=== PATIENT | male | born 1985 | race Hispanic/Latino ===

== ENCOUNTER 2025-06-09 21:16 | Emergency (ER) | payer SELFPAY ==
--- NOTE | ~2025-06-09 | CT_ITS ---
EXAMINATION: CT abdomen pelvis w con DATE: 06/10/2025 00:38 INDICATION: Purulent drainage from the belly button TECHNIQUE: Computed tomography (CT) of the abdomen and pelvis was performed with 100 cc Omnipaque 350 intravenous contrast. The dose-length product was 767.69 mGy-cm. Automated exposure control and iter ative reconstruction technique were employed. COMPARISON: None. FINDINGS: Lung bases unremarkable heart size normal. No significant pleural or pericardial effusion. Fatty infiltration of the liver. The spleen, pancreas, adrenal glands and kidneys are unremarkable. T here is a subcentimeter hypodensity of the right kidney, most likely benign cysts. There is mild skin thickening surrounding the umbilicus, suspicious for cellulitis. No abscess. No foreign body identif ied. No significant vascular abnormality. Gallbladder is present. No abnormal pelvic masses or fluid collections. Bladder is decompressed limiting evaluation for wall thickening. IMPRESSION: 1. Skin thickening with mild phlegmonous change involving the umbilicus, suspicious for cellulitis. N o drainable abscess identified. Reviewed, dictated and finalized at location A. IMPRESSION: 1. Skin thickening with mild phlegmonous change involving the umbilicus, suspic ious for cellulitis. No drainable abscess identified.
[2025-06-09 21:23] VITALS: BP 132/96; PULSE 102; RESP 18; TEMP 36.6; O2SAT 98
--- OUTSIDE RECORDS SUMMARY | 2025-06-09 23:51 | XMS_ITS | Data Portability ---
Author Organization [place] [facility] [place] [facility] Address [address] [place] [address] Care Team Providers Care Iuss Analyst Name Role Phone OMKAR STODDARD Primary Care Provider [phone] Assessment No assessment recorded. Plan of Treatment Reminders Order Date Submit Date Provider Last Modified By Organization Details Last Modified Time Details Appointments None recorded. Lab None recorded. Referral general surgeon referral 2022 023 inklems 1 [facility], [address], [place], [address], 3 11:34:07 Procedures None recorded. Surgeries open incarcerate d umbilical hernia repair w/mesh (SURG) 2022 024 API-[id number] [facility] (Surgery Sched), [address] [place], [address], 4 10:10:20 Imaging None recorded. Medication Orders None recorded. Patient TargetsNo targets recorded. Patient Instructions Encounter Date Encounter Id Patient Instructions Last Modified By Organization Details Last Modified Time 10/11/2023 [id number] A healthy lifestyle: care instructions [email or web address] Not available 10/11/2023 14:26:23 Quitting Tobacco : Care Instructions [email or web address] Not available 10/11/2023 14:26:23 Reason for Referral General Surgeon Referral for Umbilical hernia Referring Physician: Omkar Stoddard, Family Medicine, Encounter Date: 10/11/2023 Problems Name Problem SNOMED Code Status Onset Date Resolution Date Notes Provider Name and Address Organization Details Recorded Time Obesity 262458871 Active 023 Omkar Stoddard MD Attn: Accounting ,[address] [facility], [place], [address] , [facility] 10/11/2023 14:26:19 Smoker 91498512 Active 023 Omkar Stoddard MD Attn: Accounting ,[address] [facility], [place], [address] , [facility] 10/11/2023 14:26:14 Problem Notes None recorded. Medical Equipment None Reported. Allergies No known drug allergies Medications Name Sig Start Date Stop Date Status Note LastModified by Organization Details LastModified Time polyethylene glycol 3350 17 gram/dose oral powder MIX 17 GRAMS (1 CAPFULL) IN 8 OUNCES OF LIQUID AND DRINK DAILY active Not Available Not Available No t Available oxycodone 5 mg tablet Take 1 tablet every 4 hours by oral route as needed for 5 days. 024 active Not Available Not Available Not Avai lable Vitals Date Recorded Body height Oxygen saturation Oxygen saturation in Arterial blood by Pulse oximetry Body temperature Heart rate Body mass index (BMI) Body weight Systolic And Diastolic Provider Name and Address Organization Details Last Updated DateTime 4 170.18 cm 98 % 98 % 98.2 [degF] 72 /min 31.2 kg/m2 58128.6 g 121/84 mm[Hg] Musa Aguayo MA [facility] 4 10:54:39 Date Recorded Body weight Body temperature Body mass index (BMI) Body height Respiratory rate Heart rate Oxygen saturation Oxygen saturation in Arterial blood by Pulse oximetry Systolic And Diastolic Provider Name and Address Organization Details Last Updated DateTime 3 52213.9 8 g 97.9 [degF] 30.8 kg/m2 170.18 cm 16 /min 77 /min 96 % 96 % 128/82 mm[Hg] Lionel Odell MA [facility] 3 14:03:41 Date Recorded Body height Oxygen saturation Oxygen saturation in Arterial blood by Pulse oximetry Body mass index (BMI) Body weight Heart rate Body temperature Systolic And Diastolic Provider Name and Address Organization Details Last Updated DateTime 3 170.18 cm 98 % 98 % 31.3 kg/m2 32873.4 g 108 /min 98 [degF] 155/93 mm[Hg] Musa Aguayo [place] [facility] [place] 14:29:49 Social History Question Answer Notes LastModified by Organizat ion Details LastModified Time Tobacco Smoking Status Current Every Day Smoker Lionel Odell MA null, [place] [facility] 10/11/2023 13:59:58 Do You Have An Advance Directive? Yes Information not available 10/11/2023 How Many Years Have You Consumed Alcohol? 23 Information not available 10/11/2023 Are You Blind Or Do You Have Difficulty Seeing? Yes Information not available 10/11/2023 What Is Your Level Of Caffeine Consumption? Occasional Information not available 10/11/2023 In The 14 Days Before Symptom Onset, Have You Had Close Contact With A Laboratory-confir med COVID-19 While That Case Was Ill? No Information not available 10/11/2023 In The 14 Days Before Symptom Onset, Have You Had Close Contact With A Person Who Is Under Investigation For COVID-19 While That Person Was Ill? No Information not available 10/11/2023 Have You Been To An Area Known To Be High Risk For COVID-19? No Information not available 10/11/2023 Are You Deaf Or Do You Have Serious Difficulty Hearing? No Information not available 10/11/2023 What Type Of Diet Are You Following? REGULAR Information not available 10/11/2023 Are There Any Guns Present In Your Home? No Information not available 10/11/2023 Do You Have A High School Diploma Or Higher Education? No Information not available 10/11/2023 Do You Sometimes Have To Miss Your Medical Appointments Due To Difficult Getting Transportation? No Information not available 10/11/2023 Do You Feel Unfairly Treated Due To Things Such As Race, Age, Gender, Disability Or Some Other Reason? No Information not available 10/11/2023 Do You Feel Physically And Emotionally Safe While Living At Home? Yes Information not available 10/11/2023 Do You Feel Physically And Emotionally Safe In Your Neighborhood Or Other Public Places? Yes Information not available 10/11/2023 Do You Have A Medical Power Of Hospital Secretary? Yes [email or web address] Information not available 10/31/2023 What Was The Date Of Your Most Recent Tobacco Screening? 10/11/2023 Information not available 10/11/2023 How Many Children Do You Have? 4 Information not available 10/11/2023 Do You Use Protection During Sex? No Information not available 10/11/2023 What Is Your Relationship Status? Information not available 10/11/2023 Do You Use Your Seat Belt Or Car Seat Routinely? Yes Information not available 10/11/2023 Are You Sexually Active? Yes Information not available 10/11/2023 Do You Have Smoke And Carbon Monoxide Detectors In Your Home? Yes Information not available 10/11/2023 At What Age Did You Start Smoking Tobacco? 16 Information not available 10/11/2023 Are You Passively Exposed To Smoke? Yes Information no t available 10/11/2023 How Much Tobacco Do You Smoke? 0.5 PPD Information not available 10/11/2023 Do You Use Sunscreen Routinely? No Information not available 10/11/2023 Has Tobacco Cessation Counseling Been Provided? Yes Information not available 10/11/2023 On What Date Was Tobacco Cessation Counseling Provided? 10/11/2023 Information not available 10/11/2023 How Many Years Have You Smoked Tobacco? 21 Information not available 10/11/2023 Sex: Male Functional Status Question Answer Note LastModified by Organizat ion Details LastModified Time Do you use any illicit or recreational drugs? No Information not available 10/11/2023 Do you or have you ever used any other forms of tobacco or nicotine? No Information not available 10/11/2023 What is your level of alcohol consumption? Occasional Information not available 10/11/2023 Are you currently employed? Yes Information not available 10/11/2023 Are you able to care for yourself? 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 Moderate Information not available 10/11/2023 Mental Status Question Answer Note LastModified by Organization D etails LastModified Time Do you feel stressed (tense, restless, nervous, or anxious, or unable to sleep at night)? [id number] Information not available 10/11/2023 Family History Relationship Description Onset Age of this Age Resolved Age Notes LastModified by Organization Details LastModified Time Father No current problems or disability [email or web address] Not available 13:58:36 Mother No current problems or disability [email or web address] Not available 13:58:36 Medical History Condition Response Coronary Artery Disease N Other N Atrial Fibrillation N High Blood Pressure N Thyroid Problems N Kidney or Bladder Problems N Depression N COPD N Blood Clots N GI Problems N Skin Problems N Eating Disorder N Anemia N Heart Attack (MD) N Diabetes N Anxiety Disorder N Muscle, Joint, or Bone Problems N Seizures/Epilepsy N Arthritis N Acid Reflux (GERD) N Cancer N Stroke N Allergies N Asthma N ADHD N Substance Abuse N High Cholesterol N Hepatitis N Liver Disease N Schizophrenia N Headaches N Osteoporosis N Heart Failure N Past Encounters Encounter ID Performer Location Encounter Start Date Encounter Closed Date Diagnosis/Indication Diagnosis SNOMED-CT Code Diagnosis ICD10 Code Diagnosis Note [id number] Omkar Stoddard MD [address] [address] 10/11/2023 13:50:42 10/13/2023 15:46:23 Obesity 532857880 E66.9 Umbilical hernia 7338078 07 K42.9 Smoker 18200395 F17.108 [id number] Valentin Recinos MD [facility] [address] [place] [address] 10/31/2023 14:16:37 10/31/2023 15:07:31 Irreducible umbilical hernia 245640018 K42.0 patient with symptomati c umbilical hernia, amenable to open repair. Risks include bleeding, recurrence , pain, and mesh infection. Patient is in agreement with the plan of care. Will proceed to the OR as soon as is convenient . [id number] Valentin Recinos MD [facility] [address] [place] [address] 12/26/2023 10:40:27 12/26/2023 14:47:29 Irreducible umbilical hernia 680568135 K42.0 patient with symptomati c umbilical hernia, amenable to open repair. Risks include bleeding, recurrence , pain, and mesh infection. Patient is in agreement with the plan of care. Will proceed to the OR as soon as is convenient . Postoperative visit 9347 14334 Z48.89 1) diet as tolerated2 ) cleanse and moisturize incisions daily3) no lifting over 30 lbs until 6 weeks post-op4) return to office should a problem arise Health Concerns Section Related Observation LastModified by Organization Detai ls LastModified Time None Recorded Concern Status LastModified by Organization Details LastModified Time None Recorded Advance Directives Directive Y: Payers Insurance Date Sequence Insurance Name Policy Number Policy Matthew Covered Member ID Matthew Member ID Guarantor Name 10/11/2023 1 [facility] (MEDICARE REPLACEMENT/ ADVANTAGE - HMO) Reynaldo Varma [id number] Reynaldo Varma Notes Date Note Type Note Provider Name and Address Organization Details Recorded Time 10/11/2023 text/html Patient is here to establish care, complains of umbilical hernia for one year. Omkar Stoddard MD Attn: Accounting,[address] [facility], [place], [address], [facility] 10/11/2023 14:26:46 10/31/2023 text/html HerniaReported bypatient.Location:u mbilicus Quality:tender;bulgi ng Severity:moderate; do not vary with time of day Duration:1 years Onset/Timing:unknown Context:no history of chronic liver disease; no family history of substance abuse Alleviating factors:rest Aggravating factors:nothing makes it worse Associated Symptoms:no nausea; no vomiting Valentin Recinos MD [address] [place], [address], [place] 10/31/2023 14:39:18 12/26/2023 text/html s/p open umbilic la hernia repair, no pain, no swelling, no complaints. Valentin Recinos MD [address] [place], [address], [facility] 12/26/2023 11:14:06
--- OUTSIDE RECORDS SUMMARY | 2025-06-09 23:51 | XMS_ITS | Clinical Summary ---
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 Gender Identity Not on file Sexual Orientation Not on file Plan of Treatment Health Maintenance Due Date Last Done Comments Hepatitis C Virus (HCV) Screening 1983 TdaP Immunization 1983 Hepatitis B Immunization (1 of 3 - 19+ 3-dose series) 2002 Influenza Immunization (#1) 2024 SARS-COV-2 Immunization (3 - 2023-25 season) 2024 04/09/2021, 03/19/2021 Respiratory Syncytial Virus (RSV) Immunization (Adult) (1 - 1-dose 75+ series) 2058 Meningococcal Immunization (ACWY) Aged Out No longer eligible b ased on patient's age to complete this topic Pneumococcal Immunization Combined Aged Out No longer eligible b ased on patient's age to complete this topic Rotavirus Immunization Aged Out No lo nger eligible based on patient's age to complete this topic
[2025-06-09 23:52] LABS: Hematocrit 45.4 % (42.0-52.0); Hemoglobin 16.0 g/dL (14.0-18.0); Immature Granulocyte Percent A 0.5 % (0-0.5); Lymphocytes Absolute Auto 3.40 K/mm3 (0.9-3.2); Mean Corpuscular HGB Conc 35.2 g/dl (32-36); Mean Corpuscular Hemoglobin 30.5 pg (26-34); Mean Corpuscular Volume 86.6 fl (80-100); Nucleated Red Blood Cells Absolute Auto 0.000 K/mm3 (0.0-0.012); Nucleated Red Blood Cells Perc 0.0 % (0.0-0.2); Platelet Count Result 242 k/mm3 (150-375); Red Blood Count 5.24 M/mm3 (4.6-6.20); White Blood Count 10.7 K/mm3 (4.5-10.0)
[2025-06-10 00:03] VITALS: BP 134/74; PULSE 98; RESP 15; O2SAT 99
[2025-06-10 00:16] LABS: Alanine Aminotransferase 46 U/L (6-50); Albumin Level 4.4 g/dL (3.5-5.1); Alkaline Phosphatase 69 U/L (38-126); Anion Gap 7 mmol/L (4-12); Aspartate Amino Transferase 35 U/L (17-59); Bilirubin,Total 0.5 mg/dL (0.2-1.3); Blood Urea Nitrogen 18 mg/dL (9-20); Calcium 9.6 mg/dL (8.4-10.2); Carbon Dioxide 24 mmol/L (22-30); Chloride 106 mmol/L (98-107); Estimated CRCL calculation 91 ml/min; Estimated Glomerular Filt Rate > 60; Glucose 101 mg/dL (65-110); Potassium 3.8 mmol/L (3.4-5.0); Sodium 137 mmol/L (137-145); Total Protein 7.7 g/dL (6.3-8.2)
--- NOTE | 2025-06-10 00:23 | ED.ABDPAIN ---
HPI - Abdominal Pain General Chief Complaint: Abdominal Pain Stated Complaint: my belly button is bleeding Time Seen by Provider: 06/09/25 23:29 Source: patient Mode of arrival: ambulatory Limitations: no limitations History of Present Illness HPI narrative: This is a 39 year old male that presents to the ER for abdominal pain. Ongoing over the last 2 days. Reports purulent drainage from the belly button. He had umbilical hernia repair about a year and a half ago. Denies fevers, vomiting. Related Data Allergies Allergy/AdvReac Type Severity Reaction Status Date / Time No Known Allergies Allergy Verified 06/10/25 02:52 Review of Systems Review of Systems: All systems reviewed & are unremarkable except as noted in HPI and below PMFSH Surgical History Surgical History (Updated 06/10/25 @ 00:25 by Dorcas Roberts PA-C) H/O umbilical hernia repair Exam Narrative: GENERAL: Well-appearing, well-nourished, and in no acute distress. HEAD: Normocephalic, atraumatic. EYES: EOMI. CHEST: Clear to auscultation. No respiratory distress. No wheezes rales or rhonchi HEART: Regular rate and rhythm. No murmur heard. Normal peripheral pulses. ABDOMEN: Soft, nontender, nondistended, normal active bowel sounds. Purulent drainage from the umbilicus EXTREMITIES: Normal range of motion. No edema. SKIN: Warm, dry, no rash. NEURO: No focal deficits. Alert and oriented x3. PSYCH: Normal mood and affect Course Course Emergency Course: Patient updated on his workup and agrees with plan of care Vital Signs Vital signs: Vital Signs Temperature 97.9 F 06/09/25 21:23 Pulse Rate 102 H 06/09/25 21:23 Respiratory Rate 18 06/09/25 21:23 Blood Pressure 132/96 H 06/09/25 21:23 Pulse Oximetry 98 06/09/25 21:23 Oxygen Delivery Room Air 06/09/25 21:23 Temperature 97.9 F 06/09/25 21:23 Pulse Rate 102 H 06/09/25 21:23 Respiratory Rate 18 06/09/25 21:23 Blood Pressure 132/96 H 06/09/25 21:23 Pulse Oximetry 98 06/09/25 21:23 Oxygen Delivery Room Air 06/09/25 21:23 MDM - Abdominal Pain MDM Narrative Medical decision making narrative: Patient presents to the ER for drainage from umbilicus. He is afebrile and nontoxic appearing. CBC is mild leukocytosis to 10.7. Metabolic panel without concerning findings. CT abdomen pelvis shows findings of cellulitis. Patient given 1st dose of antibiotics IV. Will be continued on oral antibiotics. He was instructed to follow up with his general surgeon. He was given warnings to return to the ER Differential Diagnosis Differential diagnosis: Likely other (Cellulitis, abscess) Lab Data Attestation: I reviewed the patient's lab results. 06/09/25 23:46 06/09/25 23:46 Labs: Lab Results 06/09/25 Range/Units 23:46 WBC 10.7 H (4.5-10.0) K/mm3 RBC 5.24 (4.6-6.20) M/mm3 Hgb 16.0 (14.0-18.0) g/dL Hct 45.4 (42.0-52.0) % MCV 86.6 (80-100) fl MCH 30.5 (26-34) pg MCHC 35.2 (32-36) g/dl RDW 12.8 (11.5-14.5) % Plt Count 242 (150-375) k/mm3 MPV 9.8 (7.4-10.4) fl Immature Gran % (Auto) 0.5 (0-0.5) % Neut % (Auto) 59.1 (45.5-73.1) % Lymph % (Auto) 31.8 (18.3-44.2) % Grayson % (Auto) 6.4 (2.6-8.5) % Eos % (Auto) 1.9 (0-4.4) % Baso % (Auto) 0.3 (0.2-1.2) % Lymph # (Auto) 3.40 H (0.9-3.2) K/mm3 Grayson # (Auto) 0.7 H (0.1-0.6) K/mm3 Eos # (Auto) 0.2 (0-0.3) K/mm3 Baso # (Auto) 0.0 (0.0-0.1) K/mm3 Abs Immat Gran (auto) 0.05 H (0.00-0.031) K/mm3 Absolute Neuts (auto) 6.3 (1.3-6.7) K/mm3 Absolute Nucleated RBC 0.000 (0.0-0.012) K/mm3 Nucleated RBC % 0.0 (0.0-0.2) % Sodium 137 (137-145) mmol/L Potassium 3.8 (3.4-5.0) mmol/L Chloride 106 (98-107) mmol/L Carbon Dioxide 24 (22-30) mmol/L Anion Gap 7 (4-12) mmol/L BUN 18 (9-20) mg/dL Creatinine 1.01 (0.7-1.3) mg/dL Estim Creat Clear Calc 91 ml/min Estimated GFR > 60 (59 - ) Glucose 101 (65-110) mg/dL Calcium 9.6 (8.4-10.2) mg/dL Total Bilirubin 0.5 (0.2-1.3) mg/dL AST 35 (17-59) U/L ALT 46 (6-50) U/L Alkaline Phosphatase 69 (38-126) U/L Total Protein 7.7 (6.3-8.2) g/dL Albumin 4.4 (3.5-5.1) g/dL Imaging Data Radiologist's impression: CT abdomen/pelvis: Skin thickening and slight surrounding edema involving the umbilicus consistent with cellulitis. No discrete abscess. No foreign body or subcutaneous emphysema Critical Care Time Critical Care Time Critical Care Time: No Discharge Plan Discharge Clinical Impression: Cellulitis of umbilicus Patient Disposition: Home Condition: Stable Instructions: Antibiotic Form, Cellulitis (ED) Additional Instructions: Return to the ER if you experience fever, abdominal pain with nausea and vomiting, you are unable to keep down liquids or solids, or any other symptoms that are concerning to you Keep the area clean with soap and water. Take oral antibiotics as prescribed Follow up with your surgeon Patient Language: Frisian Prescriptions: New cephalexin 500 mg capsule 500 mg PO Q6H 7 Days Qty: 28 0RF Follow-up/Referrals: PHYSICIAN,MERCHANDISE PLANNING MANAGER [Primary Care Provider] -
[2025-06-10 02:34] VITALS: BP 132/86; PULSE 89; RESP 15; O2SAT 99
[2025-06-10] MEDS: ceFAZolin 1 GM in SODIUM CHLORIDE 0.9% IV 50 ML 100 ML IVPB (03:09)
[2025-06-10 04:05] VITALS: BP 129/87; PULSE 87; RESP 13; O2SAT 98
[2025-06-10 04:30] VITALS: BP 129/87; PULSE 87; RESP 13; O2SAT 98
== END 2025-06-10 04:31 | disposition home or self-care (01) ==
PROVIDERS: Emergency Provider Physician Assistant
DX: L03.316 Cellulitis of umbilicus (principal); D72.829 Elevated white blood cell count, unspecified
CPT/HCPCS: 36415; 74177; 80053; 85025; 96365; 99284; J0690; Q9967